=== PATIENT | female | born 1980 | race Caucasian/White ===

== ENCOUNTER → 2018-12-24 | Outpatient (CLI) | payer BC ==
[2018-12-24 12:50] LABS: Basophils % (A) 0 %; Eosinophils # (A) 0.1 k/uL (0-0.7); Eosinophils % (A) 1 %; HCT 46.1 % (34.0-46.0); Lymphocytes # (A) 1.3 k/uL (1.0-4.8); Lymphocytes % (A) 14 %; MCH 30.8 pg (25.0-35.0); MCHC 32.5 g/dL (31.0-37.0); MCV 94.7 fL (80.0-100.0); Mean Platelet Volume 7.7; Monocytes # (A) 0.4 k/uL (0-1.0); Monocytes % (A) 5 %; Neutrophils # (A) 7.5 k/uL (1.3-7.7); Neutrophils % (A) 80 %; Platelet Count 220 k/uL (150-450); RBC 4.87 m/uL (3.80-5.40); RDW 11.9 % (11.5-15.5); WBC 9.4 k/uL (3.8-10.6)
== END | disposition home or self-care (01) ==
LOC: LABPAT 11:45
PROVIDERS: ATTEND Obstetrics & Gynecology
DX: Z01.812 Encounter for preprocedural laboratory examination (principal)
CPT/HCPCS: 36415; 85025

== ENCOUNTER → 2018-12-29 | Day surgery (SDC) | payer BC ==
[2018-12-28 08:34] VITALS: BMI 27.1
--- NOTE | 2018-12-28 13:01 | P.HPOB ---
History of Present Illness H&P Date: 12/28/18 Chief Complaint: Dysfunctional uterine bleeding. This patient is a pleasant 38 yr living 3 female who present for hysteroscopy, D&C, and endometrial ablation secondary to dysfunctional uterine bleeding. She presented to my office with complaints of irregular heavy blee ding. Transvaginal ultrasound demonstrated a 1.5cm endometrial polyp. I discussed options with her and she would like to proceed with D&C and ablation. Review of Systems Genitourinary: Reports as per HPI, Reports menorrhagia Menstruation: Reports as per HPI, Reports cycle variable, Reports period heavy Past Medical History Past Medical History: Cancer Additional Past Medical History / Comment(s): melanoma, THICKENED ENDOMETRIUM; 5 , one child after from [place] Syndrome. History of Any Multi-Drug Resistant Organisms: MRSA Date of last positivie culture/infection: Jan 2013 MDRO Source:: LT LEG AFTER SPIDER BITE Past Surgical History: Appendectomy Additional Past Surgical History / Comment(s): Skin cancer with removal on right arm. Past Anesthesia/Blood Transfusion Reactions: No Reported Reaction Past Psychological History: No Psychological Hx Reported Smoking Status: Never smoker Past Alcohol Use History: None Reported Past Drug Use History: None Reported - Past Family History Mother Family Medical History: No Reported History Medications and Allergies Home Medications Medication Instructions Recorded Confirmed Type No Known Home Medications 12/28/18 12/28/18 History Allergies Allergy/AdvReac Type Severity Reaction Status Date / Time No Known Allergies Allergy Verified 12/28/18 08:21 Exam Intake and Output 12/27/18 12/28/18 12/28/18 22:59 06:59 14:59 Other: Weight 73.936 kg - OBG Physical Exam Abdomen: bowel sounds normal, no diffuse tenderness, no bruit present, no guarding noted, no hepatomegaly, no splenomegaly, no mass Vulva: both: normal Vagina: normal moisture, no discharge Cervix: no lesion, no discharge Uterus: normal size Adnexa: both: normal Results Transvaginal ultrasound on December 03 showed a 1.5cm endometrial polyp. Assessment and Plan Assessment: This is a pleasant 38 yr female with DUB and ultrasound demonstrating a large endometrial polyp. Plan is hysteroscopy, D&C and Novasure endometrial ablation. Nicole and I have discussed this surgery and risks: infection, bleeding, possible uterine perforation and/or thermal injury. All of the patients questions have been answered and a written consent obtained. (1) Dysfunctional uterine bleeding Status: Acute Code(s): N93.8 - OTHER SPECIFIED ABNORMAL UTERINE AND VAGINAL BLEEDING SNOMED Code(s): 53554124325767 (2) Endometrial polyp Status: Acute Code(s): N84.0 - POLYP OF CORPUS UTERI SNOMED Code(s): 52910747
[~2018-12-29] MED LIST: ACETAMINOPHEN TAB 500 MG TAB PO ONE; DEXAMETHASONE SOD PHOSPHATE 10 MG/ML 1 ML VIAL IV ONE; HYDROmorphone 0.5 MG/0.5 ML SYRINGE IVP PRN; KETOROLAC 30 MG/ML 1 ML VIAL ONE; LIDOCAINE 1% INJ 10MG/ML (20 ML MDV) ONE; MIDAZOLAM 2 MG/2 ML VIAL IV PRN; MIDAZOLAM 2 MG/2 ML VIAL ONE; PROPOFOL 10 MG/ML 20 ML VIAL IV ONE; Pre Op ABX Message 1 EACH MISC MISCELLANE ONE; SCOPOLAMINE 1.5MG/72HR PATCH TRANSDERM ONE; diphenhydrAMINE 50 MG/ML 1 ML VIAL IVP ONE; fentaNYL (PF) 50 MCG/ML 2 ML AMP ONE
[2018-12-29] MEDS: LACTATED RINGERS 1,000 ML IV SCH ×2 (06:33→06:52)
[2018-12-29] MEDS: ONDANSETRON 4 MG/2 ML VIAL IVP ONE ×2 (06:40→09:13)
[2018-12-29 07:33] VITALS: TEMP 97.8
[2018-12-29 07:34] VITALS: RESP 16
--- NOTE | 2018-12-29 07:36 | P.OP ---
Date of Procedure: 12/29/18 Preoperative Diagnosis: Dysfunctional uterine bleeding and endometrial polyp Postoperative Diagnosis: Same Procedure(s) Performed: #1: Hysteroscopy. #2: Dilation and curettage. #3: NovaSure endometrial ablation Anesthesia: MAC Surgeon: Michoacano Delgadillo Estimated Blood Loss (ml): 5 Urine output (ml): 25 Pathology: other (Uterine curettings) Condition: stable Disposition: PACU Indications for Procedure: Please see dictated H&P for intimate details of this patient's admission. Brief summary this pleasant 38-year-old 4 para 4 female who has had long- standing menorrhagia and dysfunctional bleeding. Transvaginal ultrasound showed an endometrial polyp. Patient was recommended to have a hysteroscopy D&C is also requesting NovaSure endometrial ablation. Patient understands this procedure and risks including risks of infection, bleeding, possible uterine perforation, and/or thermal injury. All the patient's questions are answered written consent is obtained. Operative Findings: This patient normal. Endometrial cavity with the exception of a 1 cm endometrial polyp Description of Procedure: This patient is taken to the operating room where she is laid in the supine position. She subsequently undergoes general mask anesthesia without incident. With an adequate level of anesthesia she is placed in dorsal lithotomy position. She has a vaginal perineal prep and drape. Examination under anesthesia shows a mid position uterus of normal size. Bladder is drained at this time for 25 mL of clear urine. Weighted speculum was placed in the posterior vagina. The anterior lip of the cervix is gravid and Allis clamp. I then gently sound the uterus to 9 cm. Serial dilation is then done to allow the hysteroscope easily and the uterine cavity. Hysteroscopy is performed with saline solution. Uterine cavity is measured a length of 6.5 cm. There is about a 1 cm benign- appearing endometrial polyp. Breasts the cavity appears normal. With this done the hysteroscope was removed. Cervix is dilated a bit more to allow the polyp forceps into the uterine cavity and this polyp was removed. A gentle but thorough 4 quadrant curettage is then done with a curet. Following this the NovaSure device is opened and appears to be intact. It is set at a length at 6.5 cm. It is seated in place and opens up to a width of 4.8 cm. After passing the cavity integrity test is then enabled at 174 W setting for 44 seconds. NovaSure device is then removed. Again appears to be intact. Hysteroscopy is then performed uterine cavity appears to be completely ablated up to the endocervix. Excellent results are noted. With this done the procedure is ended. The Allis clamp and weighted speculum was removed. All counts are correct 3. There are no complications. Patient is awakened from anesthesia and taken recovery room in satisfactory condition.
[2018-12-29 09:52] VITALS: BP 116/76; PULSE 77
== END | disposition home or self-care (01) ==
LOC: OR 06:03
PROVIDERS: ATTEND Obstetrics & Gynecology
DX: N93.8 Other specified abnormal uterine and vaginal bleeding (principal); N92.0 Excessive and frequent menstruation with regular cycle; N84.0 Polyp of corpus uteri; Z86.14 Personal history of Methicillin resistant Staphylococcus aureus infection; Z90.49 Acquired absence of other specified parts of digestive tract; Z85.820 Personal history of malignant melanoma of skin
CPT/HCPCS: 81025; 88305; 58563; J2250; J1200; J1100; J2405; J2001; J3010; J1885; J2704; J1170

== ENCOUNTER → 2020-12-13 | Outpatient (CLI) | payer BC ==
--- NOTE | 2020-12-14 11:36 | MM ---
Reason for exam: screening (asymptomatic). Last mammogram was performed 5 years and 11 months ago. History: Patient has history of other cancer at age 32. Family history of breast cancer in paternal cousin at age 50. Physical Findings: A clinical breast exam by your physician is recommended on an annual basis and results should be correlated with mammographic findings. MG 3D Screening Mammo W/Cad Bilateral CC and MLO view(s) were taken. Prior study comparison: January 17, 2015, bilateral MG 3d diag mammo w/cad PATIENCE. There are scattered fibroglandular densities. There is no discrete abnormality. No significant changes when compared with prior studies. ASSESSMENT: Negative, BI-RAD 1 RECOMMENDATION: Routine screening mammogram of both breasts in 1 year.
== END | disposition home or self-care (01) ==
LOC: RADMAMWWP 11:24
PROVIDERS: ATTEND Obstetrics & Gynecology
DX: Z12.31 Encounter for screening mammogram for malignant neoplasm of breast (principal); Z80.3 Family history of malignant neoplasm of breast
CPT/HCPCS: 77063; 77067

== ENCOUNTER → 2021-11-01 | Outpatient (CLI) | payer BC ==
--- NOTE | 2021-11-02 08:52 | US ---
EXAMINATION TYPE: US thyroid st tissue head/neck DATE OF EXAM: 11/01/2021 COMPARISON: NONE CLINICAL HISTORY: R22.0 SWELLING, MASS AND LUMP IN NECK. palpable left neck scanned within patient's area of concern, left neck, lymph node = 2.2 x 0.9 x 1.2cm IMPRESSION: Palpable abnormality corresponds to a lymph node in the left neck. Additional workup wou ld be of benefit, CT soft tissue neck be performed.
== END | disposition home or self-care (01) ==
LOC: RADUSWWP 16:18
PROVIDERS: ATTEND Family Medicine
DX: R22.1 Localized swelling, mass and lump, neck (principal)
CPT/HCPCS: 76536

== ENCOUNTER → 2021-12-03 | Outpatient (CLI) | payer BC ==
--- NOTE | 2021-12-03 09:25 | CT ---
EXAMINATION TYPE: CT soft tissue neck w con DATE OF EXAM: 12/03/2021 HISTORY: swelling Lt side COMPARISON: Ultrasound neck November 01, 2021 CT DLP: 386.2 mGycm. Automated Exposure Control for Dose Reduction was Utilized. TECHNIQUE: CT scan of the neck is performed with IV Contrast, patient injected with 70 mL of Isovue 300, axial images are obtained, coronal and sagittal reformatted images are reviewed. FINDINGS: Airway: No gross abnormality seen. Parotid/submandibular glands: No gross abnormality seen. Carotid/Vascular Structures: No suspicious abnormality Osseous Structures: Slight scoliotic curvature on the coronal images Other: Metallic BB placed at level of palpable abnormality in the left neck axial image 36 level of m id thyroid gland. No worrisome solid or cystic mass or abnormal adenopathy is noted at this level or the remainder of the left neck IMPRESSION: No significant abnormality is seen on this study.
== END | disposition home or self-care (01) ==
LOC: RADCTMAIN 07:33
PROVIDERS: ATTEND Family Medicine
DX: R22.0 Localized swelling, mass and lump, head (principal)
CPT/HCPCS: 70491; Q9967

== ENCOUNTER → 2022-07-04 | Outpatient (CLI) | payer BC ==
--- NOTE | 2022-07-04 21:18 | CT ---
EXAMINATION TYPE: CT abdomen pelvis wo con DATE OF EXAM: 07/04/2022 COMPARISON: CT 08/03/2013. No recent ultrasounds available at this location. INDICATION: Upper abd pain, abn US DLP: 921 mGycm, Automated exposure control for dose reduction was used. CONTRAST: 0 mL of Isovue 300. Study performed with Oral Contrast TECHNIQUE: Axial images were obtained from above the diaphragm to the pubic rami in the axial plane a t 5 mm thick sections. Reconstructed images are reviewed on the computer in the coronal plane. FINDINGS: Limited CT sections are obtained the lung bases. The lung bases are clear. CT ABDOMEN: Moderate to marked fatty infiltration of the liver. Some focal sparing may be at the dome of the rig ht lobe of the liver. Spleen appears unremarkable. Pancreas appears normal. Adrenal glands are normal . Gallbladder appears normal. Kidneys are normal without masses or cysts or hydronephrosis. Note is m lin of nonobstructing punctate renal stones within the upper and lower poles of the right kidney. Abd ominal aorta and inferior vena cava. Loops of bowel within the abdomen and pelvis appear unremarkable. Loops of bowel distended with oral contrast are unremarkable. There are some bilateral contrast limiting their evaluation. CT PELVIS: Uterus is normal. Urinary bladder is normal. Adnexa appear within normal limits. Appendix is not identified. No dilated tubular structure or inflammatory changes evident. No suspicious lytic or sclerotic lesions are evident. A bone island may be within the anterior right acetabulum. IMPRESSIONS: 1. Moderate to marked fatty infiltration of the liver. Hepatomegaly is present measuring 18.3 cm in craniocaudal dimension.
== END | disposition home or self-care (01) ==
LOC: RADCTMAIN 09:31
PROVIDERS: ATTEND Family Medicine
DX: K76.0 Fatty (change of) liver, not elsewhere classified (principal); K81.0 Acute cholecystitis; R16.0 Hepatomegaly, not elsewhere classified
CPT/HCPCS: 74176

== ENCOUNTER → 2023-03-25 | Outpatient (CLI) | payer BC ==
--- NOTE | 2023-03-26 11:24 | MM ---
Reason for Exam: Screening (asymptomatic). Last mammogram was performed 2 year(s) and 4 month(s) ago. Patient History: Menarche at age 14. First Full-Term at age 24. Perimenopausal. Patient has history of breast feeding. Other cancer, age 32. Paternal cousin had breast cancer, age 50. Risk Values: Ida 5 year model risk: 0.6%. NCI Lifetime model risk: 8.9%. Prior Study Comparison: 01/17/2015 Bilateral Diagnostic Mammogram, [facility]. 12/13/2020 Bilateral Screening Mammogram, [facility]. Tissue Density: There are scattered fibroglandular densities. Findings: Analyzed By CAD. There is no suspicious group of microcalcifications or new suspicious mass. Overall Assessment: Negative, BI-RAD 1 Management: Screening Mammogram of both breasts in [address] [facility] will attempt to contact patient to return for supplemental views and ultrasound if indicated. Patient should continue monthly self-breast exams. A clinical breast exam by your physician is recommended on an annual basis. This exam should not preclude additional follow-up of suspicious palpable abnormalities. Note on Ida scores and lifetime risk: 1. A Ida score greater than 3% is considered moderate risk. If this is the case, consider specialist referral to assess eligibility for a risk reducing agent. 2. If overall lifetime risk for the development of breast cancer is 20% or higher, the patient may qualify for future screening with alternating mammogram and breast MRI. Electronically signed and approved by: David Negron DO
== END | disposition home or self-care (01) ==
LOC: RADMAMWWP 12:09
PROVIDERS: ATTEND Obstetrics & Gynecology
DX: Z12.31 Encounter for screening mammogram for malignant neoplasm of breast (principal); Z80.3 Family history of malignant neoplasm of breast
CPT/HCPCS: 77063; 77067

== ENCOUNTER → 2024-08-02 | Outpatient (CLI) | payer BC ==
--- NOTE | 2024-08-02 09:25 | MM ---
Reason for Exam: Screening (asymptomatic). Last mammogram was performed 1 year(s) and 4 month(s) ago. Patient History: Menarche at age 14. First Full-Term at age 24. Perimenopausal. Patient has history of breast feeding. Other cancer, age 32. Paternal cousin had breast cancer, age 50. Risk Values: Ida 5 year model risk: 0.6%. NCI Lifetime model risk: 8.8%. Prior Study Comparison: 01/17/2015 Bilateral Diagnostic Mammogram, [facility]. 12/13/2020 Bilateral Screening Mammogram, [facility]. 03/25/2023 Bilateral MG 3D screening mammo w/cad, [facility]. Tissue Density: There are scattered areas of fibroglandular density. Findings: Analyzed By CAD. Partially visualized asymmetric density far posterior central left MLO view partially projecting over the pectoralis. Some density far posterior medial to the retroareolar plane on the CC view is slightly more defined. Further evaluation is recommended. Otherwise, no significant change. Overall Assessment: Incomplete: need additional imaging evaluation, BI-RAD 0 Management: Special View Mammogram of the left breast. To include spot 3-D MLO, spot 3-D CC, 3-D XCCL, and 3-D lateral views. [facility] will attempt to contact patient to return for supplemental views and ultrasound if indicated. [facility], , 08/02/2024 9:19 AM. Electronically signed and approved by: Christopher Bartholomew M.D. Radiologist
== END | disposition home or self-care (01) ==
LOC: RADMAMWWP 07:18
PROVIDERS: ATTEND Family Medicine
DX: Z12.31 Encounter for screening mammogram for malignant neoplasm of breast (principal); R92.323 Mammographic fibroglandular density, bilateral breasts; Z80.3 Family history of malignant neoplasm of breast
CPT/HCPCS: 77063; 77067

== ENCOUNTER → 2024-08-06 | Outpatient (CLI) | payer BC ==
--- NOTE | 2024-08-06 14:42 | MM ---
Reason for Exam: Additional evaluation requested from abnormal screening. Last screening mammogram was performed less than 1 month ago. Patient History: Menarche at age 14. First Full-Term at age 24. Perimenopausal. Patient has history of breast feeding. Other cancer, age 32. Paternal cousin had breast cancer, age 50. Risk Values: Ida 5 year model risk: 0.6%. NCI Lifetime model risk: 8.8%. Prior Study Comparison: 12/13/2020 Bilateral Screening Mammogram, [facility]. 03/25/2023 Bilateral MG 3D screening mammo w/cad, [facility]. 08/02/2024 Bilateral MG 3D screening mammo w/cad, [facility]. Tissue Density: Left: There are scattered areas of fibroglandular density. Findings: Analyzed By CAD. The questioned area of asymmetric density far posterior central left MLO view becomes less defined on spot 3-D. This suggests superimposition shadow. Precautionary 6 month follow-up recommended given the appearance on screening exam. Overall Assessment: Probably benign, BI-RAD 3 Management: Diagnostic Mammogram of the left breast in 6 months. Results were given to the patient verbally at the time of exam. Patient should continue monthly self-breast exams. A clinical breast exam by your physician is recommended on an annual basis. This exam should not preclude additional follow-up of suspicious palpable abnormalities. Note on Ida scores and lifetime risk: 1. A Ida score greater than 3% is considered moderate risk. If this is the case, consider specialist referral to assess eligibility for a risk reducing agent. 2. If overall lifetime risk for the development of breast cancer is 20% or higher, the patient may qualify for future screening with alternating mammogram and breast MRI. [facility], , 08/06/2024 1:36 PM. Electronically signed and approved by: Christopher Bartholomew M.D. Radiologist
== END | disposition home or self-care (01) ==
LOC: RADMAMWWP 13:08
PROVIDERS: ATTEND Family Medicine
DX: R92.8 Other abnormal and inconclusive findings on diagnostic imaging of breast (principal); R92.322 Mammographic fibroglandular density, left breast; Z80.3 Family history of malignant neoplasm of breast
CPT/HCPCS: 77061; 77065